=== PATIENT | male | born 1980 | race Caucasian/White ===

== ENCOUNTER 2018-05-03 16:13 | Emergency (ER) | payer OTHER ==
[2018-05-03 16:29] VITALS: BMI 30.1
[2018-05-03] MEDS ORDERED: ACETAMINOPHEN 325 MG TABLET (FP) PO ONE (16:40)
--- NOTE | 2018-05-03 16:40 | PDOC ---
History of Present Illness - General Chief Complaint: Chest Pain Stated Complaint: Chest Pain Time Seen by Provider: 05/03/18 16:28 History Source: Patient - History of Present Illness Presenting Symptoms: Chest Pain Timing/Duration: reports: constant Past History - Past Medical History Allergies/Adverse Reactions: Allergies Allergy/AdvReac Type Severity Reaction Status Date / Time No Known Allergies Allergy Verified 09/29/14 11:12 Home Medications: Ambulatory Orders NK [No Known Home Medication] 05/03/18 COPD: No - Suicide/Smoking/Psychosocial Hx Smoking History: Never smoked Have you smoked in the past 12 months: No Hx Alcohol Use: No Substance Use Type: None Review of Systems - Review of Systems Constitutional: No: Fever Respiratory: No: Cough, Shortness of Breath Cardiac (ROS): Yes: Chest Pain. No: Lightheadedness, Palpitations, Syncope *Physical Exam - Vital Signs Last Vital Signs Temp Pulse Resp BP Pulse Ox 98.2 F 70 16 112/72 99 05/03/18 16:23 05/03/18 16:23 05/03/18 16:23 05/03/18 16:23 05/03/18 16:23 - Physical Exam Comments: 05/03/18 16:40 Wil mildly uncomfortable General Appearance: Yes: Appropriately Dressed HEENT: positive: Normal Voice, Thrush Respiratory/Chest: positive: Lungs Clear, Normal Breath Sounds. negative: Respiratory Distress Cardiovascular: positive: Regular Rate, S1, S2 Gastrointestinal/Abdominal: positive: Soft. negative: Tender Extremity: positive: Normal Inspection Integumentary: positive: Dry, Warm Neurologic: positive: Fully Oriented, Alert, Normal Mood/Affect Heart Score/ECG Review - History History: Slightly suspicious - Electrocardiogram EKG: Normal - Age Age: </= 45 - Risk Factors Based on the list above the patient has:: No risk factors known - Troponin Troponin: </= normal limit - Score Heart Score - Total: 0 - ECG Intrepretation Comment:: 05/03/18 16:42 Twelve-lead EKG was performed and reviewed by me. There is normal sinus rhythm with a normal rate. The axis is normal. The intervals are normal. There are no ST or T wave abnormalities. Impression: Normal twelve-lead EKG ED Treatment Course - LABORATORY CBC & Chemistry Diagram: 05/03/18 16:45 05/03/18 16:45 - ADDITIONAL ORDERS Additional order review: Laboratory Results 05/03/18 05/03/18 17:00 16:45 Sodium 139 Potassium 4.4 Chloride 104 Carbon Dioxide 31 Anion Gap 4 L BUN 16 Creatinine 1.1 Creat Clearance w eGFR > 60 Random Glucose 84 Calcium 8.6 Total Bilirubin 0.5 AST 28 ALT 51 Alkaline Phosphatase 95 Creatine Kinase 195 Creatine Kinase Index 1.0 CK-MB (CK-2) 2.1 Troponin I 0.03 Total Protein 7.5 Albumin 3.6 Opiates Screen Negative Methadone Screen Negative Barbiturate Screen Negative Phencyclidine Screen Negative Ur Amphetamines Screen Negative MDMA (Ecstasy) Screen Negative Benzodiazepines Screen Negative Cocaine Screen Negative U Marijuana (THC) Screen Negative 05/03/18 16:45 RBC 4.90 MCV 91.1 MCHC 34.3 RDW 12.6 MPV 8.1 Neutrophils % 59.0 Lymphocytes % 29.2 Monocytes % 7.5 Eosinophils % 3.6 Basophils % 0.7 - RADIOLOGY Radiology Studies Ordered: Category Date Time Status CHEST X-RAY PORTABLE* [RAD] Stat Radiology 05/03/18 16:33 Taken - Medications Given in the ED: ED Medications Discontinued Medications Generic Name Dose Route Start Last Admin Trade Name Freq PRN Reason Stop Dose Admin Acetaminophen 650 mg 05/03/18 16:40 05/03/18 17:02 Tylenol - PO 05/03/18 16:41 650 mg ONCE ONE Administration Medical Decision Making - Medical Decision Making 05/03/18 16:34 37-year-old male, denies any past medical history, here with chest pain. Patient states about 1/2 hr ago, he developed gradual onset of non-radiating, SS chest pain, sharp in nature, 9/10 and worse with deep inspiration only. Otherwise no shortness of breath, diaphoresis, nausea, vomiting, palpitations, leg pain or swelling, cough, fever or chills. No recent URI sxs. No history of similar pain. Denies any illicit drug or tobacco use. No significant family history. See exam CP No RF for cardiac disease, unlikely dissection, PERCs out, no infectious sxs Wil mildly uncomfortable but stable w/ clear chest/lungs -EKG -CXR -labs -dispo pending 05/03/18 16:44 05/03/18 17:47 EKG, chest x-ray and labs all within normal limits as discussed with Dr. Barger. On reassessment, patient states pain improved with tylenol, was a 9 when he initially came into ED, now a 4. Pt appears comfortable, currently being on stretcher and talking to family. Remains stable. As discussed with ED attending, will send a second troponin and if normal, will discharge 05/03/18 18:26 Pt signed out to Dr Ulloa pending trop at 10pm *DC/Admit/Observation/Transfer Diagnosis at time of Disposition: Chest pain Qualifiers: Chest pain type: unspecified Qualified Code(s): R07.9 - Chest pain, unspecified - Discharge Dispostion Condition at time of disposition: Improved - Referrals Referrals: Felicia Gill [Primary Care Provider] - - Patient Instructions Printed Discharge Instructions: DI for Atypical Chest Pain Additional Instructions: The cause of your chest pain is unclear at this time as your EKG, chest x-ray and blood work were normal. If symptoms recur, please make an appointment with your doctor for further evaluation. If symptoms worsen, return to the ER - Post Discharge Activity
[2018-05-03 16:53] LABS: BASO % 0.7 % (0-2.0); EOS % 3.6 % (0-4.5); HEMATOCRIT 44.6 % (35.4-49); HEMOGLOBIN 15.3 GM/dL (11.7-16.9); LYMPH % 29.2 % (8-40); MCH 31.2 pg (25.7-33.7); MCHC 34.3 g/dl (32.0-35.9); MEAN CELL VOLUME 91.1 fl (80-96); MEAN PLT VOLUME 8.1 fl (7.5-11.1); MONO % 7.5 % (3.8-10.2); PLATELET COUNT 249 K/MM3 (134-434); RDW 12.6 % (11.9-15.9); WHITE BLOOD COUNT 8.5 K/mm3 (4.0-10.0)
[2018-05-03] MEDS ORDERED: ACETAMINOPHEN 325 MG TABLET (FP) ONE (16:56)
--- NOTE | 2018-05-03 17:18 | PDOC ---
*Physical Exam - Vital Signs Last Vital Signs Temp Pulse Resp BP Pulse Ox 98.2 F 70 16 112/72 99 05/03/18 16:23 05/03/18 16:23 05/03/18 16:23 05/03/18 16:23 05/03/18 16:23 ED Treatment Course - LABORATORY CBC & Chemistry Diagram: 05/03/18 16:45 05/03/18 16:45 Medical Decision Making - Medical Decision Making 05/04/18 09:59 Mr Luis A Jerez is a 37 yo M otherwise healthy who presents to the ER with a complaint of chest pain He was shopping this afternoon and reported midsternal chest pain No radiation No shortness of breath No palpitations No prior episodes like this No recent travel/immobilization/leg swelling/hemoptysis/cancer/surgery Pt initial pain score 10/10 After tylenol pain 6/10 No tachycardia EKG nml - no signs of ischemia Initial set of labs nml Pending repeat trop Pending beside echo Pt signed out to dr. mansfield Agree with plan per NEVAEH Aguila *DC/Admit/Observation/Transfer Diagnosis at time of Disposition: Chest pain - Discharge Dispostion Disposition: HOME Condition at time of disposition: Improved - Referrals Referrals: Felicia Gill [Primary Care Provider] - - Patient Instructions Printed Discharge Instructions: DI for Chest Pain Additional Instructions: The cause of your chest pain is unclear at this time as your EKG, chest x-ray and blood work were normal. If symptoms recur, please make an appointment with your doctor for further evaluation. If symptoms worsen, return to the ER - Post Discharge Activity
[2018-05-03 17:20] LABS: ALBUMIN 3.6 g/dl (3.4-5.0); ALK PHOS 95 U/L (45-117); ANION GAP 4 MMOL/L (8-16); BILIRUBIN,TOTAL 0.5 mg/dL (0.2-1); BLOOD UREA NITROGEN 16 mg/dL (7-18); CALCIUM 8.6 mg/dL (8.5-10.1); CHLORIDE 104 mmol/L (98-107); CO2 31 mmol/L (21-32); CREATININE 1.1 mg/dL (0.55-1.3); GLUCOSE,RANDOM 84 mg/dL (74-106); POTASSIUM 4.4 mmol/L (3.5-5.1); SGOT/AST 28 U/L (15-37); SGPT/ALT 51 U/L (13-61); SODIUM 139 mmol/L (136-145); TOT PROT 7.5 g/dl (6.4-8.2)
[2018-05-03 17:23] LABS: COCAINE, UR NEGATIVE ng/ml (CUTOFF=300); METHADONE, UR NEGATIVE ng/ml (CUTOFF=300); OPIATES, URI NEGATIVE ng/ml (CUTOFF=300); PHENCYCLIDINE,URINE NEGATIVE ng/ml (CUTOFF=25); URINE AMPHETAMINES NEGATIVE ng/ml (CUTOFF=500); URINE BARBITURATES NEGATIVE ng/ml (CUTOFF=200); URINE BENZODIAZEPINES NEGATIVE ng/ml (CUTOFF=200)
--- NOTE | 2018-05-03 18:28 | PDOC ---
*Physical Exam - Vital Signs Last Vital Signs Temp Pulse Resp BP Pulse Ox 98.2 F 70 16 112/72 99 05/03/18 16:23 05/03/18 16:23 05/03/18 16:23 05/03/18 16:23 05/03/18 16:23 05/03/18 18:25 Patient's care endorsed to me by Chantel Aguila. 37 YOM p/w substernal chest pain while shopping, worsens with breathing, non-reproducible. First set labs and EKG and CXR unremarkable. Awaiting 2nd set trop at 10pm. Heart Score/ECG Review - History History: Slightly suspicious - Electrocardiogram EKG: Normal - Age Age: </= 45 - Risk Factors Based on the list above the patient has:: No risk factors known - Troponin Troponin: </= normal limit - Score Heart Score - Total: 0 #1 EKG performed 05/03/18 16:25 NSR, rate 68, normal axis and intervals, TW flattening in III, aVL, aVF, V456; no pathologic ST-T changes #2 EKG performed 05/03/18 at 20:35 NSR, rate 74, normal axis and intervals, TW flattening in III, aVL, aVF, V456 similar to first EKG; no pathologic ST-T changes. ED Treatment Course - LABORATORY CBC & Chemistry Diagram: 05/03/18 16:45 05/03/18 16:45 - ADDITIONAL ORDERS Additional order review: Laboratory Results 05/03/18 05/03/18 17:00 16:45 Sodium 139 Potassium 4.4 Chloride 104 Carbon Dioxide 31 Anion Gap 4 L BUN 16 Creatinine 1.1 Creat Clearance w eGFR > 60 Random Glucose 84 Calcium 8.6 Total Bilirubin 0.5 AST 28 ALT 51 Alkaline Phosphatase 95 Creatine Kinase 195 Creatine Kinase Index 1.0 CK-MB (CK-2) 2.1 Troponin I 0.03 Total Protein 7.5 Albumin 3.6 Opiates Screen Negative Methadone Screen Negative Barbiturate Screen Negative Phencyclidine Screen Negative Ur Amphetamines Screen Negative MDMA (Ecstasy) Screen Negative Benzodiazepines Screen Negative Cocaine Screen Negative U Marijuana (THC) Screen Negative 05/03/18 16:45 RBC 4.90 MCV 91.1 MCHC 34.3 RDW 12.6 MPV 8.1 Neutrophils % 59.0 Lymphocytes % 29.2 Monocytes % 7.5 Eosinophils % 3.6 Basophils % 0.7 - Medications Given in the ED: ED Medications Discontinued Medications Generic Name Dose Route Start Last Admin Trade Name Sumeet PRN Reason Stop Dose Admin Acetaminophen 650 mg 05/03/18 16:40 05/03/18 17:02 Tylenol - PO 05/03/18 16:41 650 mg ONCE ONE Administration Medical Decision Making - Medical Decision Making Laboratory Tests 05/03/18 05/03/18 05/03/18 16:45 16:45 17:00 WBC 8.5 RBC 4.90 Hgb 15.3 Hct 44.6 MCV 91.1 MCH 31.2 MCHC 34.3 RDW 12.6 Plt Count 249 MPV 8.1 Absolute Neuts (auto) 5.0 Neutrophils % 59.0 Lymphocytes % 29.2 Monocytes % 7.5 Eosinophils % 3.6 Basophils % 0.7 Nucleated RBC % 0 Sodium 139 Potassium 4.4 Chloride 104 Carbon Dioxide 31 Anion Gap 4 L BUN 16 Creatinine 1.1 Creat Clearance w eGFR > 60 Random Glucose 84 Calcium 8.6 Total Bilirubin 0.5 AST 28 ALT 51 Alkaline Phosphatase 95 Creatine Kinase 195 Creatine Kinase Index 1.0 CK-MB (CK-2) 2.1 Troponin I 0.03 Total Protein 7.5 Albumin 3.6 Opiates Screen Negative Methadone Screen Negative Barbiturate Screen Negative Phencyclidine Screen Negative Ur Amphetamines Screen Negative MDMA (Ecstasy) Screen Negative Benzodiazepines Screen Negative Cocaine Screen Negative U Marijuana (THC) Screen Negative Patient states that he is only having the pain now when deep breathing. Asking to eat now; he is given small amount to eat/drink. 05/03/18 20:56 Repeat troponin is negative. Repeat EKG not concerning. The Pt has been observed in the ED for several hours. Workup not concerning for emergency concern at this time. No murmur of of or HOCM is heard. On EKG no e/o WPW, Brugada, epsilon wave, right heart strain, long QT, or other concern. The Pt is appropriate for discharge with close outpatient follow up. Pt and family are comfortable with this and will follow up with their PCP in 1- 3 days. They agree to return to the ED with any new/worsening symptoms. Specific return precautions are discussed and they will come back to the ER if necessary. *DC/Admit/Observation/Transfer Diagnosis at time of Disposition: Chest pain Qualifiers: Chest pain type: unspecified Qualified Code(s): R07.9 - Chest pain, unspecified - Discharge Dispostion Disposition: HOME Condition at time of disposition: Improved Decision to Admit order: No - Referrals Referrals: Felicia Gill [Primary Care Provider] - - Patient Instructions Printed Discharge Instructions: DI for Chest Pain Additional Instructions: The cause of your chest pain is unclear at this time as your EKG, chest x-ray and blood work were normal. If symptoms recur, please make an appointment with your doctor for further evaluation. If symptoms worsen, return to the ER - Post Discharge Activity
[2018-05-03 20:42] VITALS: BP 109/58; PULSE 72; TEMP 97.8
--- NOTE | 2018-05-04 09:59 | EKG ---
Test Reason : Blood Pressure : / mmHG Vent. Rate : 074 BPM Atrial Rate : 074 BPM P-R Int : 166 ms QRS Dur : 076 ms QT Int : 382 ms P-R-T Axes : 032 052 040 degrees QTc Int : 424 ms NORMAL SINUS RHYTHM NONSPECIFIC T WAVE ABNORMALITY ABNORMAL ECG NO PREVIOUS ECGS AVAILABLE Confirmed by ARETHA RICARDO MD ([id number]) on 05/04/2018 9:58:32 AM Referred By: Confirmed By:ARETHA RICARDO MD
--- NOTE | 2018-05-05 12:09 | EKG ---
Test Reason : Blood Pressure : / mmHG Vent. Rate : 068 BPM Atrial Rate : 068 BPM P-R Int : 148 ms QRS Dur : 068 ms QT Int : 374 ms P-R-T Axes : 021 056 048 degrees QTc Int : 397 ms NORMAL SINUS RHYTHM NORMAL ECG NO PREVIOUS ECGS AVAILABLE Confirmed by RAE JONES MD ([id number]) on 05/05/2018 12:09:39 PM Referred By: Confirmed By:RAE JONES MD
== END 2018-05-03 21:42 | disposition home or self-care (01) ==
LOC: JER 16:13
DX: R07.9 Chest pain, unspecified (principal)
CPT/HCPCS: 36415; 71045-TC-FY; 80053; 80307; 82550; 82553; 84484; 85025; 93005; 93010; 99284-25

== ENCOUNTER 2018-10-22 17:00 | Emergency (ER) | payer OTHER ==
[2018-10-22 17:09] VITALS: BP 130/57; PULSE 89; TEMP 98; BMI 30.7
--- NOTE | 2018-10-22 17:16 | PDOC ---
Rapid Medical Evaluation Chief Complaint: Shortness of Breath Time Seen by Provider: 10/22/18 17:05 Medical Evaluation: Allergies Allergy/AdvReac Type Severity Reaction Status Date / Time No Known Allergies Allergy Verified 10/22/18 17:05 Vital Signs Temp Pulse Resp BP Pulse Ox 98.0 F 89 18 130/57 L 94 L 10/22/18 17:07 10/22/18 17:07 10/22/18 17:07 10/22/18 17:07 10/22/18 17:07 10/22/18 17:14 I have performed a brief in-person evaluation of this patient. The patient presents with a chief complaint of SOB and cough after cleaning elyssa closet today Pertinent physical exam findings:well ochoa and in NAD w/ sat 94% on RA, chest/ lungs clear I have ordered the following:nothing The patient will proceed to the ED for further evaluation. Discharge Disposition - Diagnosis SOB (shortness of breath) - Referrals - Patient Instructions - Post Discharge Activity
--- NOTE | 2018-10-22 17:33 | PDOC ---
History of Present Illness - General Chief Complaint: Shortness of Breath Stated Complaint: S.O.B Time Seen by Provider: 10/22/18 17:05 - History of Present Illness Initial Comments: 10/22/18 17:33 Mr. Gunn is a 38 yo male w/ no significant pmh who presents for evaluation of shortness of breath episode. Patient reports his seasonal allergies have been bothering him with a small cough for the last week. He additionally elected to clean a elyssa closet today and had an episode of coughing and shortness of breath that worried him. Patient presents for evaluation of this episode; reports he feels better at this time. The patient denies chest pain, headache and dizziness. Denies fever, chills, nausea, vomit, diarrhea and constipation. Denies dysuria, frequency, urgency and hematuria. Past History - Past Medical History Allergies/Adverse Reactions: Allergies Allergy/AdvReac Type Severity Reaction Status Date / Time No Known Allergies Allergy Verified 10/22/18 17:05 Home Medications: Ambulatory Orders NK [No Known Home Medication] 05/03/18 COPD: No - Immunization History Immunization Up to Date: Yes - Suicide/Smoking/Psychosocial Hx Smoking History: Never smoked Have you smoked in the past 12 months: No Hx Alcohol Use: No Drug/Substance Use Hx: No Substance Use Type: None Review of Systems - Review of Systems Comments:: 10/22/18 17:46 GENERAL/CONSTITUTIONAL: No fever or chills. No weakness. HEAD, EYES, EARS, NOSE AND THROAT: No change in vision. No ear pain or discharge. No sore throat. CARDIOVASCULAR: +SOB as described, now resolved. No chest pain RESPIRATORY: +Dry cough for 1 week. No wheezing or hemoptysis. GASTROINTESTINAL: No nausea, vomiting, diarrhea or constipation. GENITOURINARY: No dysuria, frequency, or change in urination. MUSCULOSKELETAL: No joint or muscle swelling or pain. No neck or back pain. SKIN: No rash NEUROLOGIC: No headache, vertigo, loss of consciousness, or change in strength/ sensation. ENDOCRINE: No increased thirst. No abnormal weight change HEMATOLOGIC/LYMPHATIC: No anemia, easy bleeding, or history of blood clots. ALLERGIC/IMMUNOLOGIC: No hives or skin allergy. *Physical Exam - Vital Signs Last Vital Signs Temp Pulse Resp BP Pulse Ox 98.0 F 89 18 130/57 L 94 L 10/22/18 17:07 10/22/18 17:07 10/22/18 17:07 10/22/18 17:07 10/22/18 17:07 - Physical Exam Comments: 10/22/18 17:47 GENERAL: Awake, alert, and fully oriented, in no acute distress HEAD: No signs of trauma, normocephalic, atraumatic EYES: PERRLA, EOMI, sclera anicteric, conjunctiva clear ENT: Auricles normal inspection, hearing grossly normal, nares patent, oropharynx clear without exudates. Moist mucosa NECK: Normal ROM, supple, no lymphadenopathy, JVD, or masses LUNGS: No distress, speaks full sentences, clear to auscultation bilaterally HEART: Regular rate and rhythm, normal S1 and S2, no murmurs, rubs or gallops, peripheral pulses normal and equal bilaterally. ABDOMEN: Soft, nontender, normoactive bowel sounds. No guarding, no rebound. No masses EXTREMITIES: Normal inspection, Normal range of motion, no edema. No clubbing or cyanosis. NEUROLOGICAL: Cranial nerves II through XII grossly intact. Normal speech, normal gait, no focal sensorimotor deficits SKIN: Warm, Dry, normal turgor, no rashes or lesions noted. Medical Decision Making - Medical Decision Making 10/22/18 18:40 Mr. Gunn 38 yo male w/ pmh as described who presents for evaluation of SOB symptoms concerning for dust reaction vs. viral illness vs. cardiac problem. Patient evaluated with EKG and CXR; given duoneb for symptomatic relief. Patient EKG normal sinus. CXR negative. Patient reporting relief from symptoms following duoneb. Repeat O2 sat 97% at bedside. No concern for acute process at this time. Discharging to home. *DC/Admit/Observation/Transfer Diagnosis at time of Disposition: SOB (shortness of breath) - Discharge Dispostion Disposition: HOME - Referrals Referrals: Felicia Gill [Primary Care Provider] - Liliana Garrison [Non Staff, Medical] - - Patient Instructions Printed Discharge Instructions: DI for Shortness of Breath Additional Instructions: You were evaluated today in the ER for your shortness of breath episode. We performed EKG and chest Xray with no concerning findings and your symptoms improved with a breathing treatment. We do not believe anything emergent is occurring at this time. Please follow-up with primary care provider for further evaluation. Return to ER if any further shortness of breath, fever, chills, chest pain, or other concerning symptoms. - Post Discharge Activity
[2018-10-22] MEDS ORDERED: ALBUTEROL SO4 2.5/IPRATROPIUM 0.5 INH SOL 3 ML VIAL.NEB. NEB ONE ×2 (17:40→17:44)
[2018-10-22] MEDS ORDERED: ALBUTEROL SO4 0.083% IH SOL 2.5 MG/3 ML VIAL.NEB. NEB ONE (17:43)
--- NOTE | 2018-10-23 01:58 | PDOC ---
Documentation entered by Tennille Lopez SCRIBE, acting as scribe for Laura Cerda MD. Laura Cerda MD: This documentation has been prepared by the John snyder Xhesika, SCRIBE, under my direction and personally reviewed by me in its entirety. I confirm that the documentation accurately reflects all work, treatment, procedures, and medical decision making performed by me. Attending Attestation - Resident Resident Name: Jamal Hart - ED Attending Attestation I have performed the following: I have examined & evaluated the patient, The case was reviewed & discussed with the resident, I agree w/resident's findings & plan, Exceptions are as noted - HPI HPI: 10/22/18 17:51 The patient is a 38 year old male with no significant past medical history of who presents to our ED with SOB. The patient states he was cleaning a closet at home at the onset of his SOB and coughing. The patient was worried because he has been experiencing seasonal allergies associated with cough for the last week. The patient denies any complaints at this time. Allergy: NKDA Surgical History: None reported Social History: None reported PCP: Felicia Oquendo - Physicial Exam PE: 10/22/18 17:53 GENERAL: Awake, alert, and fully oriented, in no acute distress HEAD: No signs of trauma EYES: PERRLA, EOMI, sclera anicteric, conjunctiva clear ENT: Auricles normal inspection, hearing grossly normal, nares patent, oropharynx clear without exudates. Moist mucosa NECK: Normal ROM, supple, no lymphadenopathy, JVD, or masses LUNGS: Breath sounds equal, clear to auscultation bilaterally. No wheezes, and no crackles HEART: Regular rate and rhythm, normal S1 and S2, no murmurs, rubs or gallops ABDOMEN: Soft, nontender, normoactive bowel sounds. No guarding, no rebound. No masses EXTREMITIES: Normal range of motion, no edema. No clubbing or cyanosis. No cords, erythema, or tenderness NEUROLOGICAL: Cranial nerves II through XII grossly intact. Normal speech, normal gait SKIN: Warm, Dry, normal turgor, no rashes or lesions noted. - Medical Decision Making 10/22/18 18:15 38 yo male was cleaning a elyssa closet and started coughing and had shortness of breath 10/22/18 18:15 10/22/18 18:40 Upon exam, the patient's lungs are clear to auscultation at this time, he never had any chest pain, he started coughing and having shortness of breath after cleaning out a elyssa closet Impression allergies/reactive airway. Discharge home
--- NOTE | 2018-10-23 12:09 | EKG ---
Test Reason : Blood Pressure : / mmHG Vent. Rate : 086 BPM Atrial Rate : 086 BPM P-R Int : 150 ms QRS Dur : 078 ms QT Int : 352 ms P-R-T Axes : 000 135 165 degrees QTc Int : 421 ms NORMAL SINUS RHYTHM LEFT POSTERIOR FASCICULAR BLOCK INFERIOR INFARCT , AGE UNDETERMINED ABNORMAL ECG WHEN COMPARED WITH ECG OF 03-MAY-2018 20:35, LEFT POSTERIOR FASCICULAR BLOCK IS NOW PRESENT T WAVE INVERSION NOW EVIDENT IN LATERAL LEADS Confirmed by MD Paco, Dixon ([id number]) on 10/23/2018 12:08:35 PM Referred By: Confirmed By:Dixon Antonio MD
== END 2018-10-22 18:48 | disposition home or self-care (01) ==
LOC: JER 17:00
PROC: 3E0F7GC Introduction of Other Therapeutic Substance into Respiratory Tract, Via Natural or Artificial Opening (ICD-10-PCS; principal; 2018-10-22)
DX: R06.02 Shortness of breath (principal); J30.2 Other seasonal allergic rhinitis
CPT/HCPCS: 71046-TC-FY; 93005; 93010; 99281-25

== ENCOUNTER 2018-11-08 05:27 | Emergency (ER) | payer OTHER | END 2018-11-08 10:00 | disposition home or self-care (01) | LOC: JER 05:27 ==

== ENCOUNTER 2020-10-02 10:38 | Emergency (ER) | payer OTHER ==
[2020-10-02 10:51] VITALS: TEMP 98.1; BMI 32.3
[2020-10-02] MEDS ORDERED: KETOROLAC TROMETHAMINE 30 MG/1 ML VIAL IVPUSH ONE (11:16)
[2020-10-02] MEDS ORDERED: SODIUM CHLORIDE 1,000 ML IV STA (11:16)
[2020-10-02] MEDS ORDERED: KETOROLAC TROMETHAMINE 30 MG/1 ML VIAL ONE (11:25)
[2020-10-02 11:52] LABS: BASO % 0.9 % (0-2.0); EOS % 1.6 % (0-4.5); HEMATOCRIT 45.6 % (35.4-49); HEMOGLOBIN 15.3 GM/dL (11.7-16.9); LYMPH % 18.7 % (8-40); MCH 31.1 pg (25.7-33.7); MCHC 33.6 g/dl (32.0-35.9); MEAN CELL VOLUME 92.6 fl (80-96); MONO % 7.2 % (3.8-10.2); NEUT % 71.6 % (42.8-82.8); PLATELET COUNT 334 K/MM3 (134-434); RBC 4.93 M/mm3 (4.00-5.60); RDW 13.1 % (11.9-15.9)
[2020-10-02 11:55] LABS: EPI CELLS 3 /uL (0-25.1); HYALINE CASTS 1 /uL (0-3.1); URINE APPEARANCE CLEAR; URINE BACTERIA 8 /uL (0-1359); URINE BILIRUBIN NEGATIVE (NEGATIVE); URINE COLOR YELLOW; URINE GLUCOSE (UA) NEGATIVE (NEGATIVE); URINE KETONE NEGATIVE (NEGATIVE); URINE LEUK ESTERASE NEGATIVE (NEGATIVE); URINE NITRITE NEGATIVE (NEGATIVE); URINE PROTEIN 2+ (NEGATIVE); URINE RBC 155 /uL (0-23.9); URINE UROBILINOGEN 0.2 mg/dL (0.2-1.0); URINE WBC 9 /uL (0-25.8)
[2020-10-02 12:21] LABS: CALCIUM 9.2 mg/dL (8.5-10.1)
[2020-10-02 12:25] LABS: CREATININE 1.1 mg/dL (0.55-1.3)
[2020-10-02 12:26] LABS: BILIRUBIN,TOTAL 0.6 mg/dL (0.2-1); TOT PROT 8.3 g/dl (6.4-8.2)
[2020-10-02] MEDS ORDERED: TAMSULOSIN HCL 0.4 MG CAP PO ONE (13:02)
[2020-10-02 13:35] VITALS: BP 124/87; PULSE 80
== END 2020-10-02 13:35 | disposition home or self-care (01) ==
LOC: JER 10:38
PROC: 3E0333Z Introduction of Anti-inflammatory into Peripheral Vein, Percutaneous Approach (ICD-10-PCS; principal; 2020-10-02)
PROC: 3E0337Z Introduction of Electrolytic and Water Balance Substance into Peripheral Vein, Percutaneous Approach (ICD-10-PCS; 2020-10-02)
DX: N20.0 Calculus of kidney (principal)
CPT/HCPCS: 36415; 74176-TC; 80053; 81003; 85025; 87086; 99284-25

== ENCOUNTER 2023-03-16 11:27 | Emergency (ER) | payer OTHER ==
[2023-03-16 11:46] VITALS: BP 107/70; PULSE 105; RESP 19; TEMP 99.4; BMI 28.7
[2023-03-16] MEDS ORDERED: ACETAMINOPHEN 500 MG TABLET (FP) PO ONE (12:24)
[2023-03-16] MEDS ORDERED: ACETAMINOPHEN 500 MG TABLET (FP) ONE (12:27)
== END 2023-03-16 13:57 | disposition home or self-care (01) ==
LOC: JERFT 11:27
DX: R05.9 Cough, unspecified (principal); R09.81 Nasal congestion; R53.83 Other fatigue; R51.9 Headache, unspecified; Z20.822 Contact with and (suspected) exposure to COVID-19
CPT/HCPCS: 0241U-QW; 71046-TC-FY; 99284-25

== ENCOUNTER 2023-12-04 13:27 | Emergency (ER) | payer OTHER ==
[2023-12-04 13:37] VITALS: BP 118/70; PULSE 87; RESP 18; TEMP 97.8; BMI 30.1
[2023-12-04] MEDS ORDERED: LIDOCAINE 4% PATCH TP ONE (14:18)
[2023-12-04] MEDS ORDERED: CYCLOBENZAPRINE HCL 10 MG TABLET (FP) ONE (14:18)
[2023-12-04] MEDS ORDERED: KETOROLAC TROMETHAMINE 30 MG/1 ML VIAL ONE (14:18)
[2023-12-04] MEDS: CYCLOBENZAPRINE HCL 10 MG TABLET (FP) PO ONE (14:23)
[2023-12-04] MEDS: LIDOCAINE 5% TOPICAL PATCH TP ONE (14:24)
[2023-12-04] MEDS: KETOROLAC TROMETHAMINE 30 MG/1 ML VIAL IM ONE (14:24)
[2023-12-04] MEDS: diazePAM 5 MG TABLET PO ONE (14:25)
[2023-12-04 14:44] LABS: PH,URINE 5.5 (5.0-8.0); URINE APPEARANCE CLEAR; URINE BILIRUBIN NEGATIVE (NEGATIVE); URINE COLOR YELLOW; URINE GLUCOSE (UA) NEGATIVE (NEGATIVE); URINE KETONE TRACE (NEGATIVE); URINE LEUK ESTERASE NEGATIVE (NEGATIVE); URINE NITRITE NEGATIVE (NEGATIVE); URINE PROTEIN NEGATIVE (NEGATIVE)
[2023-12-04] MEDS ORDERED: LIDOCAINE PATCH REMOVAL MC SCH (22:00)
== END 2023-12-04 15:24 | disposition home or self-care (01) ==
LOC: JERFT 13:27
PROC: 3E0233Z Introduction of Anti-inflammatory into Muscle, Percutaneous Approach (ICD-10-PCS; principal; 2023-12-04)
DX: S39.012A Strain of muscle, fascia and tendon of lower back, initial encounter (principal); X50.0XXA Overexertion from strenuous movement or load, initial encounter
CPT/HCPCS: 81003; 99284-25